=== PATIENT | female | born 1960 | race Caucasian/White ===

== ENCOUNTER → 2020-06-15 | Outpatient (CLI) | payer BC ==
--- NOTE | 2020-06-15 22:12 | XR ---
EXAMINATION TYPE: XR chest 2V DATE OF EXAM: 06/15/2020 COMPARISON: NONE HISTORY: Multiple breast implant surgeries with left-sided chest pain. TECHNIQUE: Frontal and lateral views of the chest are obtained. FINDINGS: There is no focal air space opacity, pleural effusion, or pneumothorax seen. The cardiac silhouette size is within normal limits. The osseous structures are intact. Overlying breast implan ts are present bilaterally. IMPRESSION: No acute cardiopulmonary process.
--- NOTE | 2020-06-15 22:13 | XR ---
EXAMINATION TYPE: XR abdomen 1V DATE OF EXAM: 06/15/2020 3:51 PM CLINICAL HISTORY: Left-sided chest and abdominal pain. TECHNIQUE: Two Upright KUB images of the abdomen are obtained. COMPARISON: None. FINDINGS: Gas seen in nondistended stomach bubble. Scattered gas is seen in non-distended small bowel loops. Gas and fecal material is seen in non-distended colon. Hepatomegaly and/or prominent right he patic lobe is present. Underlying scoliotic curvature. The lung bases are clear. No pneumoperitoneum. Right-sided pelvic phleboliths. The osseous structures are intact. IMPRESSION: Overall nonobstructive bowel gas pattern.
== END | disposition home or self-care (01) ==
LOC: RADXRMAIN 15:29
PROVIDERS: ATTEND Family Medicine
DX: R10.9 Unspecified abdominal pain (principal); R07.89 Other chest pain; Z98.82 Breast implant status
CPT/HCPCS: 71046; 74018

== ENCOUNTER → 2022-06-17 | Outpatient (CLI) | payer OTHER ==
--- NOTE | 2022-06-18 08:33 | XR ---
EXAMINATION TYPE: XR chest 2V DATE OF EXAM: 06/17/2022 COMPARISON: 06/15/2020 HISTORY: 62-year-old female R07.9, unspecified chest pain TECHNIQUE: Frontal and lateral views FINDINGS: The cardiomediastinal silhouette, aorta, and pulmonary vasculature are within normal limits. Hyperinf lation. Lungs and pleural spaces are clear. IMPRESSION: COPD. No acute cardiopulmonary process.
== END | disposition home or self-care (01) ==
LOC: RADXRMAIN 16:01
PROVIDERS: ATTEND Family Medicine
DX: J44.9 Chronic obstructive pulmonary disease, unspecified (principal); R07.9 Chest pain, unspecified
CPT/HCPCS: 71046

== ENCOUNTER → 2023-02-17 | Outpatient (CLI) | payer OTHER ==
--- NOTE | 2023-02-17 12:06 | XR ---
EXAMINATION TYPE: XR lumbar spine 2 or 3V DATE OF EXAM: 02/17/2023 CLINICAL HISTORY: pain TECHNIQUE: Three views of the lumbar spine are submitted. COMPARISON: None. FINDINGS: There are 5 lumbar type vertebral bodies identified. The lumbar spine shows satisfactory alignment w ithout evidence of acute fracture or dislocation. Vertebral body heights are within normal limits. Multilevel displacement with endplate sclerosis. The overlying soft tissue appears unremarkable. IMPRESSION: 1. No acute fracture or dislocation is seen in the lumbar spine. 2. Mild multilevel degenerative disc disease of the lumbar spine.
== END | disposition home or self-care (01) ==
LOC: RADXRMAIN 11:01
PROVIDERS: ATTEND Family Medicine
DX: M51.36 Other intervertebral disc degeneration, lumbar region (principal)
CPT/HCPCS: 72100

== ENCOUNTER 2023-03-11 05:42 | Day surgery (SDC) | payer OTHER ==
[2023-03-11] MEDS ORDERED: ALPRAZolam 0.25 MG TAB PO PRN (05:59)
[2023-03-11] MEDS ORDERED: ALPRAZolam 0.5 MG TAB PO PRN (05:59)
[2023-03-11] MEDS ORDERED: NITROGLYCERIN SL TABS 0.4 MG TAB SUBLINGUAL PRN (05:59)
[2023-03-11] MEDS ORDERED: SODIUM CHLORIDE 0.9% 1,000 ML in EMPTY BAG 1 BAG IV SCH (05:59)
[2023-03-11 06:41] VITALS: RESP 16; TEMP 97.2
[2023-03-11 06:48] LABS: Basophils # (A) 0.1 k/uL (0-0.2); Basophils % (A) 1 %; Eosinophils # (A) 0.3 k/uL (0-0.7); Eosinophils % (A) 4 %; HCT 40.4 % (34.0-46.0); HGB 13.6 gm/dL (11.4-16.0); Lymphocytes # (A) 2.2 k/uL (1.0-4.8); Lymphocytes % (A) 27 %; MCH 31.9 pg (25.0-35.0); MCHC 33.7 g/dL (31.0-37.0); MCV 94.5 fL (80.0-100.0); Mean Platelet Volume 7.7; Monocytes # (A) 0.4 k/uL (0-1.0); Monocytes % (A) 5 %; Neutrophils # (A) 4.9 k/uL (1.3-7.7); Neutrophils % (A) 61 %; Platelet Count 252 k/uL (150-450); RBC 4.28 m/uL (3.80-5.40); RDW 12.2 % (11.5-15.5)
[2023-03-11 06:53] LABS: African American GFR (CKD) >90 (>60 ml/min/1.73 sqM); Anion Gap 11 mmol/L; Blood Urea Nitrogen 15 mg/dL (7-17); Calcium 9.6 mg/dL (8.4-10.2); Carbon Dioxide 25 mmol/L (22-30); Chloride 104 mmol/L (98-107); Glucose 94 mg/dL (74-99); Non-African American GFR(CKD) >90 (>60 ml/min/1.73 sqM); Sodium 140 mmol/L (137-145)
[2023-03-11] MEDS ORDERED: ASPIRIN 325 MG TAB PO ONE (07:00)
[2023-03-11 07:06] LABS: Potassium 3.8 mmol/L (3.5-5.1)
[2023-03-11] MEDS ORDERED: fentaNYL (PF) 50 MCG/ML 2 ML AMP ONE (07:35)
[2023-03-11] MEDS ORDERED: BENZOCAINE SPRAY 1 CAN TOPICAL ONE (07:42)
[2023-03-11] MEDS ORDERED: MIDAZOLAM 2 MG/2 ML VIAL IVP ONE ×2 (07:42→07:43)
[2023-03-11] MEDS ORDERED: fentaNYL (PF) 50 MCG/ML 2 ML AMP IVP ONE (07:42)
[2023-03-11] MEDS ORDERED: IV FLUID CONTINUATION 700 ML IV ONE (07:47)
[2023-03-11] MEDS ORDERED: HEPARIN SODIUM 1,000 UN/ML (10ML VL) ONE (07:59)
[2023-03-11] MEDS ORDERED: LIDOCAINE 1% INJ 10MG/ML (5 ML VIAL-PF) SQ ONE (08:00)
[2023-03-11] MEDS ORDERED: VERAPAMIL SYRINGE (5 MG/10 ML) INTRAARTER ONE (08:01)
[2023-03-11] MEDS ORDERED: HEPARIN SODIUM 1,000 UN/ML (10ML VL) IVP ONE (08:04)
--- NOTE | 2023-03-11 08:20 | P.PCN ---
Date of Procedure: 03/11/23 Operative Findings: TRANSESOPHAGEAL ECHOCARDIOGRAM GEOTECHNICAL ENGINEERING TECHNICIAN: AFSANEH MOORE MD, RPVI INDICATION: Rule out bicuspid aortic valve Assess the severity of mitral regurgitation SEDATION: Conscious sedation COMPLICATION: None LEVEL OF SEDATION Moderate with sedation length of 15 minutes PROCEDURE DESCRIPTION: After obtaining an informed consent, the patient was brought to transesophageal echocardiogram room. Pulse oximetry and heart monitors were attached to the patient. The patient throat was sprayed using lidocaine. The patient was turned into left lateral position. After that a bite guard was placed. After an appropriate conscious sedation was initiated, the transesophageal echocardiogram was advanced through a bite guard into the mid esophagus. A 2-D echocardiogram images, color Doppler images, continuous wave images, pulse-wave images, of various cardiac structure were performed. After that the transesophageal echocardiogram probe was advanced into the stomach and fixed to obtain transgastric view was. The probe was brought into the mid esophagus. Inter-atrial septum was interrogated using 2D images, color Doppler images, and then contrast study. After that transesophageal echocardiogram was withdrawn out and upon withdrawing the descending thoracic aorta all the way up to the arch was evaluated. FINDING: The left ventricular dimension and systolic function appeared to be within normal limits. The ejection fraction appeared to be in the range of 55-60%. The right ventricle appeared to be of normal size and function. The left atrium and right atrium appears to be within normal limits for dimension. The left atrial appendage appeared to be free from any thrombus. The aortic valve appeared to be trileaflet valve with no stenosis and no regurgitation. The aortic root appears to be dilated. The mitral valve appeared to be mildly thickened with kgob-se-twskejex mitral regurgitation. There is fhlf-wn-puipcwhw tricuspid regurgitation was identified. No evidence of pericardial effusion identified. CONCLUSION: 1. Trileaflet aortic valve with no stenosis or regurgitation 2. Kiwl-pp-ajxfpcwu mitral regurgitation was identified and the mitral valve leaflets are mildly thickened 3. Normal left ventricular dimension and systolic function 4. Normal right ventricular dimension and systolic function 5. No evidence of pericardial effusion 6. Dilated aortic root
[2023-03-11] MEDS ORDERED: IOPAMIDOL-370 100ML BTL INJ ONE (08:23)
[2023-03-11] MEDS ORDERED: SODIUM CHLORIDE 0.9% 1,000 ML IV ONE (08:24)
--- NOTE | 2023-03-11 08:24 | P.PCN ---
Date of Procedure: 03/11/23 Operative Findings: CARDIAC CATHETERIZATION PERFORMING PHYSICIAN: Nazario Flowers MD, RPVI PROCEDURE PERFORMED: 1. Selective right and left coronary angiogram 2. Left heart catheterization 3. Ultrasound guided access of the right radial artery INDICATION: This is a 63-year-old female patient who was symptomatic and underwent myocardial perfusion imaging stress test and that showed moderate area of reversibility anteriorly COMPLICATION: None APPROACH: Right radial artery LEVEL OF SEDATION: Moderate with a sedation length of 12 minutes PROCEDURE DESCRIPTION: After obtaining an informed consent, the patient was brought to cardiac manager cath lab. Local anesthesia was performed using lidocaine subcutaneously. The right radial artery was cannulated using Seldinger technique, the guidewire passed easily, following that we advanced a 5-Serbian sheath dilator assembly, the wire and dilator were removed and sheath was flushed. Following that, 2 mg of verapamil along with 3000 unit heparin were given. Selective right and left coronary angiogram using a 6-Serbian JR4 and JL 3.5 catheters. Following that we did left heart catheterization using 6-Serbian pigtail catheter. The procedure was completed there was no complication. SELECTIVE CORONARY ANGIOGRAM: The right coronary artery: Large-caliber vessel and a dominant vessel. The RCA is angiographically normal. Distally bifurcates into PDA and PLV branches and both appeared to be angiographically normal The left main: Is angiographically normal. Bifurcates into an LCx and LAD The left circumflex: Large-caliber vessel and nondominant dominant vessel. The LCx is angiographically normal. Gives rises into an OM1 and OM 2 and both appeared to be angiographically normal The left anterior descending artery: Large-caliber vessel. The LAD is angiographically normal. Gives rises into the first and second diagonal branches and both appeared to be angiographically normal. HEMODYNAMICS: The old the EDP was 20 mmHg and there was about 20 mm mean gradient across aortic valve CONCLUSION: 1. Normal coronary angiogram 2. Elevated left-sided filling pressure 3. Further evaluation of the gradient across aortic POSTPROCEDURE MANAGEMENT: Medical treatment and follow-up with the patient
[2023-03-11 12:32] VITALS: BP 132/76; PULSE 54
--- NOTE | 2023-04-29 15:14 | ECHOT ---
TRANSESOPHAGEAL ECHOCARDIOGRAM LEATHER SPONGER: AFSANEH MOORE MD, RPVI INDICATION: Rule out bicuspid aortic valve Assess the severity of mitral regurgitation SEDATION: Conscious sedation COMPLICATION: None LEVEL OF SEDATION Moderate with sedation length of 15 minutes PROCEDURE DESCRIPTION: After obtaining an informed consent, the patient was brought to transesophageal echocardiogram room. Pulse oximetry and heart monitors were attached to the patient. The patient throat was sprayed using lidocaine. The patient was turned into left lateral position. After that a bite guard was placed. After an appropriate conscious sedation was initiated, the transesophageal echocardiogram was advanced through a bite guard into the mid esophagus. A 2-D echocardiogram images, color Doppler images, continuous wave images, pulse-wave images, of various cardiac structure were performed. After that the transesophageal echocardiogram probe was advanced into the stomach and fixed to obtain transgastric view was. The probe was brought into the mid esophagus. Inter-atrial septum was interrogated using 2D images, color Doppler images, and then contrast study. After that transesophageal echocardiogram was withdrawn out and upon withdrawing the descending thoracic aorta all the way up to the arch was evaluated. FINDING: The left ventricular dimension and systolic function appeared to be within normal limits. The ejection fraction appeared to be in the range of 55-60%. The right ventricle appeared to be of normal size and function. The left atrium and right atrium appears to be within normal limits for dimension. The left atrial appendage appeared to be free from any thrombus. The aortic valve appeared to be trileaflet valve with no stenosis and no regurgitation. The aortic root appears to be dilated. The mitral valve appeared to be mildly thickened with fjta-[id number]-qczsurei mitral regurgitation. There is ytko-ih-eltayutv tricuspid regurgitation was identified. No evidence of pericardial effusion identified. CONCLUSION: 1. Trileaflet aortic valve with no stenosis or regurgitation 2. Ktyd-ld-repsdpvz mitral regurgitation was identified and the mitral valve leaflets are mildly thickened 3. Normal left ventricular dimension and systolic function 4. Normal right ventricular dimension and systolic function 5. No evidence of pericardial effusion 6. Dilated aortic root MTDD
== END 2023-03-11 12:26 | disposition home or self-care (01) ==
LOC: CATHCVL 05:42
PROVIDERS: ATTEND Internal Medicine Interventional Cardiology
DX: I34.0 Nonrheumatic mitral (valve) insufficiency (principal); I51.7 Cardiomegaly; I10 Essential (primary) hypertension; E78.5 Hyperlipidemia, unspecified; Z82.49 Family history of ischemic heart disease and other diseases of the circulatory system; Z79.899 Other long term (current) drug therapy
CPT/HCPCS: 99152; 93312; 93320; 93325; 93458; 76937; 80048; 85025; C1769; C1894; J2250; J2001; J3010; J1644; Q9967

== ENCOUNTER → 2023-04-15 | Outpatient (CLI) | payer OTHER ==
--- NOTE | 2023-04-16 18:17 | MM ---
Reason for Exam: Screening (asymptomatic). Last mammogram was performed 1 year(s) and 2 month(s) ago. Patient History: Menarche at age 13. First Full-Term at age 26. Postmenopausal. Currently using Estrogen and Progesterone, starting at age 60. 2012, Bilateral Implants. Mother had ovarian cancer, age 42. Risk Values: Oneyda 5 year model risk: 1.7%. NCI Lifetime model risk: 7.7%. Prior Study Comparison: 04/02/2017 Bilateral Screening Mammogram, [facility]. 01/25/2021 Bilateral MG 3D screening mammo w/cad, [facility]. 02/14/2022 Bilateral MG 3D screening mammo w/cad, [facility]. Tissue Density: The breast tissue is heterogeneously dense. This may lower the sensitivity of mammography. Findings: Analyzed By CAD. An appears symmetrical and stable. Breast prostheses appear normal. No suspicious groups of microcalcifications, spiculated or lobular masses, architectural distortion or other secondary signs of malignancy are mammographically apparent. Overall Assessment: Negative, BI-RAD 1 Management: Screening Mammogram of both breasts in 1 year. A negative mammogram report should not preclude additional follow up of suspicious palpable abnormalities. Patient should continue monthly self breast exam. A clinical breast exam by your physician is recommended on an annual basis and results should be correlated with mammographic findings. Electronically signed and approved by: Sal Campbell D.O. Radiologis
== END | disposition home or self-care (01) ==
LOC: RADMAMWWP 11:16
PROVIDERS: ATTEND Obstetrics & Gynecology
DX: Z12.31 Encounter for screening mammogram for malignant neoplasm of breast (principal); Z78.0 Asymptomatic menopausal state
CPT/HCPCS: 77063; 77067

== ENCOUNTER → 2024-04-27 | Outpatient (CLI) | payer OTHER ==
--- NOTE | 2024-04-28 16:48 | MM ---
Reason for Exam: Screening (asymptomatic). Last screening mammogram was performed 12 month(s) ago. Patient History: Menarche at age 13. First Full-Term at age 26. Postmenopausal. Currently using Estrogen and Progesterone, starting at age 60. 2013, Bilateral Implants. Mother had ovarian cancer, age 42. Risk Values: Oneyda 5 year model risk: 1.7%. NCI Lifetime model risk: 7.4%. Prior Study Comparison: 01/25/2021 Bilateral MG 3D screening mammo w/cad, [facility]. 02/14/2022 Bilateral MG 3D screening mammo w/cad, [facility]. 04/15/2023 Bilateral MG 3D screen mammo imp/cad., [facility]. Tissue Density: The breasts are heterogeneously dense, which may obscure small masses. Findings: Analyzed By CAD. Bilateral retropectoral silicone implants. There is no suspicious group of microcalcifications or new suspicious mass in either breast. Overall Assessment: Negative, BI-RAD 1 Management: Screening Mammogram of both breasts in 1 year. . Patient should continue monthly self-breast exams. A clinical breast exam by your physician is recommended on an annual basis. This exam should not preclude additional follow-up of suspicious palpable abnormalities. Note on Oneyda scores and lifetime risk: 1. A Oneyda score greater than 3% is considered moderate risk. If this is the case, consider specialist referral to assess eligibility for a risk reducing agent. 2. If overall lifetime risk for the development of breast cancer is 20% or higher, the patient may qualify for future screening with alternating mammogram and breast MRI. [facility], , 04/28/2024 4:45 PM. Electronically signed and approved by: Tyshawn Romero M.D. Radiologist
== END | disposition home or self-care (01) ==
LOC: RADMAMWWP 09:58
PROVIDERS: ATTEND Obstetrics & Gynecology
DX: Z12.31 Encounter for screening mammogram for malignant neoplasm of breast (principal); Z78.0 Asymptomatic menopausal state; R92.333 Mammographic heterogeneous density, bilateral breasts
CPT/HCPCS: 77063; 77067